=== PATIENT | male | born 1950 | race Two or more races ===

== ENCOUNTER 2023-10-22 07:21 | Day surgery (SDC) | payer OTHER ==
[2023-10-22] MEDS ORDERED: DIPHENHYDRAMINE HCL 50 MG/ML VIAL 1ML IV ONE (09:45)
[2023-10-22] MEDS ORDERED: MIDAZOLAM HCL 2 MG/2 ML VIAL IV ONE (09:45)
[2023-10-22] MEDS ORDERED: fentaNYL CITRATE 50 MCG/ML AMPUL IV ONE (09:45)
== END 2023-10-22 11:15 | disposition home or self-care (01) ==
LOC: AMB-ENDOS 07:21 → CIR.AMB 14:00
PROVIDERS: ATTEND Surgery
DX: D12.0 Benign neoplasm of cecum (principal); K63.5 Polyp of colon; K57.30 Diverticulosis of large intestine without perforation or abscess without bleeding; R19.4 Change in bowel habit